=== PATIENT | male | born 1995 | race Hispanic/Latino ===

== ENCOUNTER 2021-12-30 16:00 | Emergency (ER) | payer OTHER, SELFPAY ==
[2021-12-30] MEDS ORDERED: Iopamidol 370 76% 100 ML VIAL FS ONE (16:01)
[2021-12-30] MEDS ORDERED: Lidocaine 1% w/Epinephrine 1:100K 20 ML VIAL ONE (17:22)
[2021-12-30] MEDS ORDERED: Morphine 4 MG/ML VIAL ONE (18:09)
[2021-12-30] MEDS ORDERED: Ondansetron PF 4 MG/2 ML Vial ONE (18:09)
[2021-12-30] MEDS ORDERED: Piperacillin/Tazobactam 4.5 GM VIAL ONE (18:09)
[2021-12-30] MEDS ORDERED: Sodium Chloride 0.9% 100 ML ONE (18:09)
[2021-12-30 18:11] LABS: #Basophils 0.2 thou/uL (0.0-0.2); #Eosinphils 0.5 thou/uL (0.0-0.7); #Lymphocytes 2.3 thou/uL (1.20-3.40); #Monocytes 1.4 thou/uL (0.11-0.59); #Neutrophils 12.1 thou/uL (1.40-6.50); %Eosinophils 3.3 % (0.0-10.0); %Monocytes 8.3 % (0.0-10.0); %Neutrophils 73.3 % (42.0-75.0); Mean Corpuscular HGB CONC 33.6 g/dL (32.0-36.0); Mean Corpuscular Hemoglobin 30.3 pg (27.0-31.0); Mean Platelet Volume 7.2 fL (7.4-10.4); Platelet Count 313 thou/uL (130-400); RBC Distribution Width 12.2 % (11.5-14.5); Red Blood Cell (RBC) Count 4.95 mill/uL (4.70-6.10); White Blood Cell (WBC) Count 16.5 thou/uL (4.8-10.8)
[2021-12-30] MEDS ORDERED: Boostrix 0.5 ML (Tdap) VIAL ONE (18:12)
[2021-12-30 18:30] LABS: ALT (SGPT) 100 U/L (8-55); AST (SGOT) 60 U/L (5-34); Albumin 4.4 g/dL (3.5-5.0); Alkaline Phosphatase 136 U/L (40-110); Anion Gap 14 mmol/L (10-20); BUN (Urea Nitrogen) 7 mg/dL (8.9-20.6); Bilirubin, Total 0.6 mg/dL (0.2-1.2); Calc. Creatinine Clearance 0 mL/min (70-130); Calcium 9.4 mg/dL (7.8-10.44); Carbon Dioxide 25 mmol/L (22-29); Chloride 103 mmol/L (98-107); Estimated GFR 127; Globulin 3.5 g/dL (2.4-3.5); Glucose 103 mg/dL (70-105); Potassium 4.1 mmol/L (3.5-5.1); Protein, Total 7.9 g/dL (6.0-8.3); Sodium 138 mmol/L (136-145)
== END 2021-12-30 19:28 | disposition home or self-care (01) ==
LOC: BURERS 16:00
DX: K61.1 Rectal abscess (principal); L03.317 Cellulitis of buttock
CPT/HCPCS: 10060; 72193; 80053; 83605; 85025; 90471; 90715; 96365; 96375; J2270; J2405; J2543; J3490; Q9967